=== PATIENT | male | born 1990 | race Caucasian/White ===

== ENCOUNTER 2018-03-08 13:42 | Emergency (ER) | payer BC ==
[2018-03-08 14:09] VITALS: BP 129/74; PULSE 94; BMI 31.7
[2018-03-08] MEDS ORDERED: CEPHALEXIN MONOHYDRATE 500 MG CAPSULE (UD) PO ONE (14:53)
[2018-03-08] MEDS ORDERED: DIPHTH,PERTUSS(ACELL),TET 0.5 ML DISP.SYRIN IM ONE ×2 (14:54→15:14)
[2018-03-08] MEDS ORDERED: IBUPROFEN 600 MG TABLET (FP) PO ONE ×2 (14:55→14:58)
[2018-03-08] MEDS ORDERED: CEPHALEXIN MONOHYDRATE 500 MG CAPSULE (UD) ONE (14:56)
--- NOTE | 2018-03-08 14:59 | PDOC ---
History of Present Illness - General Chief Complaint: Injury Stated Complaint: INJURY Time Seen by Provider: 03/08/18 14:46 History Source: Patient Exam Limitations: No Limitations - History of Present Illness Initial Comments: 03/08/18 14:55 Or playing football today, fell and incurred injury to his right fifth digit. Is uncertain as to mechanism but thinks probably jammed and hyper extended. Now with pain at PIP with a scrape/open wound to middle phalanx of same. States distal tip is mildly numb and is unable to bend. Did not relocate after injury Occurred: reports: just prior to arrival, this afternoon Severity: reports: moderate Pain Location: reports: upper extremity (right fifth digit) Loss of Consciousness: no loss of consciousness Associated Symptoms (Fall): denies symptoms Past History - Travel Traveled outside of the country in the last 30 days: No Close contact w/someone who was outside of country & ill: No - Past Medical History Allergies/Adverse Reactions: Allergies Allergy/AdvReac Type Severity Reaction Status Date / Time No Known Allergies Allergy Verified 10/29/15 05:53 Home Medications: Ambulatory Orders Cephalexin Monohydrate [Keflex -] 500 mg PO Q8H #21 capsule 03/08/18 Naproxen [Naprosyn -] 500 mg PO BID #30 tablet 03/08/18 COPD: No - Suicide/Smoking/Psychosocial Hx Smoking History: Never smoked Hx Alcohol Use: No Drug/Substance Use Hx: No Review of Systems - Review of Systems Able to Perform ROS?: Yes Is the patient limited Setswana proficient: Yes Constitutional: Yes: Symptoms Reported, See HPI, Malaise. No: Fever HEENTM: Yes: See HPI. No: Symptoms Reported Musculoskeletal: Yes: Symptoms Reported, See HPI, Joint Pain, Joint Swelling All Other Systems: Reviewed and Negative *Physical Exam - Vital Signs Last Vital Signs Temp Pulse Resp BP Pulse Ox 94 H 18 129/74 96 03/08/18 14:05 03/08/18 14:05 03/08/18 14:05 03/08/18 14:05 - Physical Exam General Appearance: Yes: Nourished, Appropriately Dressed, Apparent Distress, Mild Distress HEENT: positive: SARAH, Normal ENT Inspection, TMs Normal, Pharynx Normal Neck: positive: Supple. negative: Tender Respiratory/Chest: positive: Lungs Clear Gastrointestinal/Abdominal: positive: Soft Musculoskeletal: negative: Normal Inspection Extremity: positive: Normal Capillary Refill, Swelling (swelling and deformity to right fifth digit extending from MCP down to DIP. Tenderness and inability flex, with open wound to middle phalanx of fifth digit. Sensation is intact although some diminished). negative: Normal Inspection, Normal Range of Motion Integumentary: positive: Swelling, Ecchymosis Neurologic: positive: exercise instruct II-XII NML intact, Fully Oriented, Alert, Normal Mood/ Affect, Normal Response, Motor Strength 5/5 Procedures - Joint Reduction Right Joint Reduction Site: right: Finger (5th digit) Pre-Procedure NV Exam: normal Progress Note - Progress Note Progress Note: Open fracture/dislocation of right fifth digit, reduced. Patient given first dose of Keflex, and finger reduced with traction and splinted. Will follow-up with Dr. Peck for reevaluation in 2-3 days. *DC/Admit/Observation/Transfer Diagnosis at time of Disposition: Open fracture of finger of right hand Qualifiers: Encounter type: initial encounter Finger: little finger Phalanx: proximal Fracture alignment: nondisplaced Qualified Code(s): S62.646B - Nondisplaced fracture of proximal phalanx of right little finger, initial encounter for open fracture - Discharge Dispostion Disposition: HOME Condition at time of disposition: Stable Decision to Admit order: No - Prescriptions Prescriptions: Cephalexin Monohydrate [Keflex -] 500 mg PO Q8H #21 capsule - Referrals Referrals: John Chirinos MD [Staff Physician] - - Patient Instructions Printed Discharge Instructions: DI for Open Fracture Additional Instructions: Rest, ice to area on and off for 15 minutes 4-6 times a day Avoid heavy lifting or exercise until pain and swelling is resolved or until further directed Keep area highly elevated to reduce swelling Use splints/Frank wrap as directed Followup with orthopedist in one to 2 days if not improving, if significantly improved may wait one week for followup with orthopedist May use ibuprofen 2-200 mg tablets every 6 hours as needed for pain Keflex 500 mg tablet every 8 hours for the next 7 days total - Post Discharge Activity Forms/Work/School Notes: Back to Work
[2018-03-08] MEDS ORDERED: BACITRACIN 15 GM TUBE TOPICAL OINTMENT ONE (15:51)
[2018-03-08] MEDS ORDERED: BACITRACIN 15 GM TUBE TOPICAL OINTMENT TP ONE (16:03)
== END 2018-03-08 16:08 | disposition home or self-care (01) ==
LOC: JERFT 13:42
PROC: 0PSTXZZ Reposition Right Finger Phalanx, External Approach (ICD-10-PCS; principal; 2018-03-08)
PROC: 2W3JX1Z Immobilization of Right Finger using Splint (ICD-10-PCS; 2018-03-08)
DX: S62.616B Displaced fracture of proximal phalanx of right little finger, initial encounter for open fracture (principal); W18.39XA Other fall on same level, initial encounter; Y93.61 Activity, american tackle football; Y92.89 Other specified places as the place of occurrence of the external cause; Y99.8 Other external cause status
CPT/HCPCS: 73140-TC-RT-FY; 90715; 99283-25